=== PATIENT | male | born 1955 | race African-American/Black ===

== ENCOUNTER 2017-10-27 15:21 | Inpatient (IN) | payer BC ==
[~2017-10-27] VITALS: Ht 170.2 cm; Wt 85.9 kg
[2017-10-27 15:49] LABS: HEMATOCRIT 47.8 % (38.0-50.0); HEMOGLOBIN 15.5 G/DL (12.5-16.6); MCH 28.9 PG (29.0-34.0); MCHC 32.4 G/DL (30.0-36.0); PLATELET COUNT 231 K/uL (156-360); RBC DIS.WIDTH-CV 11.8 % (11.8-14.6); RBC DIS.WIDTH-SD 38.4 % (39-53); RED BLOOD COUNT 5.37 M/uL (4.00-5.50); WHITE BLOOD COUNT 4.7 K/uL (4.1-10.2)
[2017-10-27 15:54] LABS: CHLORIDE 106 mEq/L (99-109); POTASSIUM 3.8 mEq/L (3.7-5.4); SODIUM 141 mEq/L (136-147)
[2017-10-27 15:55] LABS: GLUCOSE 108 mg/dL (70-99)
[2017-10-27 15:59] LABS: CREATININE 1.2 mg/dL (0.6-1.3); GFR ESTIMATE (CALCULATED) > 59 mL/min/ (58.99-99999)
[2017-10-27 16:00] LABS: UREA NITROGEN (BUN) 17 mg/dL (9-23)
[2017-10-27 16:06] LABS: TROP-I INTERPRETATION NEGATIVE; TROPONIN-I 0.03 ng/mL (0.0-0.30)
[2017-10-27 17:34] LABS: HDL CHOLESTEROL 35 MG/DL (Desirable>=40); LDL CHOLESTEROL 90 mg/dL (Desirable<100); NON-HDL CHOLESTEROL 105 mg/dL (Desirable<160); TOTAL CHOLESTEROL 140 mg/dL (Desirable<200); TRIGLYCERIDES 77 MG/DL (Normal: <150)
[2017-10-27 19:35] VITALS: BP 196/100
[2017-10-27 22:10] LABS: TROP-I INTERPRETATION NEGATIVE; TROPONIN-I 0.02 ng/mL (0.0-0.30)
[2017-10-27 23:47] VITALS: BP 153/85
[2017-10-28 04:54] VITALS: BP 152/84
[2017-10-28 06:17] LABS: TROP-I INTERPRETATION NEGATIVE; TROPONIN-I 0.02 ng/mL (0.0-0.30)
[2017-10-28 06:50] LABS: CHLORIDE 105 MEQ/L (99-109); GFR ESTIMATE (CALCULATED) > 59 mL/min/ (58.99-99999); GLUCOSE 97 mg/dL (70-99); POTASSIUM 3.9 MEQ/L (3.7-5.4); SODIUM 138 MEQ/L (136-147); UREA NITROGEN (BUN) 13 mg/dL (9-23)
[2017-10-28 08:00] VITALS: BP 162/103
[2017-10-28 10:13] LABS: HEMOGLOBIN A1c (GLYCOHEMOGLOB) 5.2 % (Below 5.7)
[2017-10-28] MEDS ORDERED: AMLODIPINE BESY10 MG PO (10:36)
[2017-10-28] MEDS ORDERED: ATORVASTATIN CA40 MG PO (10:36)
[2017-10-28] MEDS ORDERED: ASPIR-LOW81 MG PO (10:36)
== END 2017-10-28 12:53 | disposition home or self-care (01) | DRG 66 ==
LOC: EME 15:21 → ENRESERV 16:45 → EDOF 16:45 → 5SOUTH 16:45 → ENRESERV 17:23 → 5SOUTH 19:26
PROVIDERS: Emergency Medicine; Internal Medicine
DX: I63.9 Cerebral infarction, unspecified (principal); I16.0 Hypertensive urgency; I10 Essential (primary) hypertension; Z79.82 Long term (current) use of aspirin
CPT/HCPCS: 70450; 70496; 70498; 70551; 80047; 80048; 80061; 83036; 84484; 85027; 85610; 85730; 93005; 93306; 99281; 99285; J1650; J7030